=== PATIENT | male | born 1950 | race Caucasian/White ===

== ENCOUNTER → 2017-10-23 | Outpatient (CLI) | payer MEDICAID ==
[~2017-10-23] MED LIST: ALBU18HF INH; ASPI-621 PO; CEFD300C37 PO; FINA5TAB4 PO; HYDR-3307 PO; IPRA4AER INH; LANS15TA6 PO; LISI5TAB7 PO; METO25TA35 PO; METR500T PO; OXYB5TAB7 PO; OXYC5CAP2 PO; RIVA20TA PO; TAMS0.4C2 PO; TRAM50TA2 PO; ZOLM2.5T7 PO
[2017-10-23 15:20] LABS: ALANINE AMINOTRANSFERASE 49 U/L (12-78); ALBUMIN 3.9 g/dL (3.4-5.0); ANION GAP 9 mmol/L (5-15); CALCIUM 9.2 mg/dL (8.5-10.1); CHLORIDE 108 mmol/L (98-107)
[2017-10-23 15:22] LABS: ALKALINE PHOSPHATASE 72 U/L (45-117); BILIRUBIN,TOTAL 0.8 mg/dL (0.2-1.0); CREATININE 0.91 mg/dL (0.7-1.3); TOTAL PROTEIN 8.4 g/dL (6.4-8.2)
[2017-10-23 15:32] LABS: BASOPHILS # (AUTO) 0.03 x10^3/uL (0-0.1); BASOPHILS % (AUTO) 0 % (0-1); EOSINOPHILS # (AUTO) 0.14 x10^3/uL (0-0.4); EOSINOPHILS % (AUTO) 2 % (1-7); LYMPHOCYTES # (AUTO) 1.91 x10^3/uL (1-3.4); LYMPHOCYTES % (AUTO) 21 % (22-44); MD NO; MEAN CORPUSCULAR HEMOGLOBIN 31.3 pg (27.5-34.5); MEAN CORPUSCULAR HGB CONC 33.7 g/dL (33.2-36.2); MEAN CORPUSCULAR VOLUME 92.9 fL (81-97); MEAN PLATELET VOLUME 8.4 fL (7.4-10.4); MONOCYTES # (AUTO) 0.78 x10^3/uL (0.2-0.8); MONOCYTES % (AUTO) 9 % (2-9); NEUTROPHILS # (AUTO) 6.08 x10^3/uL (1.8-6.8); NEUTROPHILS % (AUTO) 68 % (42-75); PLATELET COUNT 311 x10^3/uL (130-400); RED BLOOD COUNT 4.81 x10^6/uL (4.38-5.82); RED CELL DISTRIBUTION WIDTH 14.5 % (9.4-14.8)
== END | disposition home or self-care (01) ==
LOC: STAR 13:41
PROVIDERS: ATTEND Internal Medicine Cardiovascular Disease
DX: Z01.812 Encounter for preprocedural laboratory examination (principal); I48.92 Unspecified atrial flutter
CPT/HCPCS: 36415; 80053; 85025

== ENCOUNTER → 2017-10-23 | Outpatient (CLI) | payer MEDICAID ==
[~2017-10-23] MED LIST changes: +OMNIPAQUE 350 MG/ML, 150 ML BOTTLE ONE
== END | disposition home or self-care (01) ==
LOC: CFH 12:12
PROVIDERS: ATTEND Internal Medicine Cardiovascular Disease
DX: J18.9 Pneumonia, unspecified organism (principal); J90 Pleural effusion, not elsewhere classified; I48.92 Unspecified atrial flutter
CPT/HCPCS: 71046; 75572; Q9967

== ENCOUNTER 2017-10-27 06:17 | Observation (INO) | payer MEDICAID ==
[2017-10-23 14:19] VITALS: BP 145/103
[~2017-10-27] VITALS: Ht 188 cm; Wt 89.8 kg
[~2017-10-27 06:17] MED LIST changes: -OMNIPAQUE 350 MG/ML, 150 ML BOTTLE ONE
[2017-10-27] MEDS ORDERED: SODIUM CHLORIDE 0.9% 1,000 ML IV SCH ×2 (06:39→07:00)
[2017-10-27] MEDS ORDERED: FENTANYL PF 250 MCG/5ML ONE (07:28)
[2017-10-27] MEDS ORDERED: MIDAZOLAM 1 MG/ML, 2ML ONE (07:28)
[2017-10-27] MEDS ORDERED: HEPARIN 1,000 UNITS/ML, 10ML ONE (07:29)
[2017-10-27] MEDS ORDERED: LIDOCAINE-MPF 2% ,5ML ONE ×3 (07:41→07:55)
[2017-10-27] MEDS ORDERED: ISOPROTERENOL 0.2MG/ML, 5ML ONE (07:41)
[2017-10-27] MEDS ORDERED: LIDOCAINE 2% 100MG/5ML SYRINGE ONE (07:54)
[2017-10-27] MEDS ORDERED: PROPOFOL 10 MG/ML, 20ML ONE (08:00)
[2017-10-27] MEDS ORDERED: SUCCINYLCHOLINE 20 MG/ML, 10ML ONE (08:00)
[2017-10-27] MEDS ORDERED: ROCURONIUM 10 MG/ML,10ML ONE (08:00)
[2017-10-27] MEDS ORDERED: DEXAMETHASONE 4 MG/ML, 1ML ONE (08:00)
[2017-10-27] MEDS ORDERED: ONDANSETRON 2MG/ML, 2ML ONE (08:00)
[2017-10-27] MEDS ORDERED: ALBUTEROL SULFATE INH PRN (09:30)
[2017-10-27] MEDS ORDERED: ACETAMINOPHEN 325 MG TABLET PO PRN ×2 (09:30→10:00)
[2017-10-27] MEDS ORDERED: ZOLMITRIPTAN 2.5 MG TABLET PO SCH (09:30)
[2017-10-27] MEDS ORDERED: ZOLPIDEM 5MG TABLET PO PRN (09:30)
[2017-10-27] MEDS ORDERED: RIVAROXABAN 20 MG TABLET ONE (09:36)
[2017-10-27] MEDS ORDERED: OXYcodone 5 MG/5 ML ORAL.SOL UDC PO PRN (10:00)
[2017-10-27] MEDS ORDERED: MIDAZOLAM 1 MG/ML, 2ML IV PRN (10:00)
[2017-10-27] MEDS ORDERED: PROMETHAZINE 12.5 MG SUPP PR PRN (10:00)
[2017-10-27] MEDS ORDERED: LORazepam 2 MG/ML, 1ML IVPush PRN (10:00)
[2017-10-27] MEDS ORDERED: PROMETHAZINE 25 MG/ML, 1ML IV PRN (10:00)
[2017-10-27] MEDS ORDERED: morphine SULFATE 10 MG/ML, 1ML IV PRN (10:00)
[2017-10-27] MEDS ORDERED: hydrALAzine 20 MG/ML, 1ML IV PRN (10:00)
[2017-10-27] MEDS ORDERED: ALBUTEROL/IPRATROPIUM 2.5MG/0.5MG, 3 ML NPPB PRN (10:00)
[2017-10-27] MEDS ORDERED: METOPROLOL 1 MG/ML, 5ML IV PRN (10:00)
[2017-10-27] MEDS ORDERED: ONDANSETRON 2MG/ML, 2ML IVPush PRN (10:00)
[2017-10-27] MEDS ORDERED: FENTANYL PF 100 MCG/2ML IV PRN (10:00)
[2017-10-27] MEDS ORDERED: EPHEDRINE 50 MG/ML, 1ML IVPush PRN (10:00)
[2017-10-27 11:43] VITALS: BP 131/83
[2017-10-27] MEDS ORDERED: ALBUTEROL SULFATE 2.5MG/0.5ML NPPB PRN (12:00)
[2017-10-27 16:11] VITALS: BP 122/77
[2017-10-27 19:53] VITALS: BP 124/76
[2017-10-27] MEDS ORDERED: LISINOPRIL 5 MG TABLET PO SCH (21:00)
[2017-10-27] MEDS ORDERED: TAMSULOSIN 0.4 MG CAP.ER.24H PO SCH (22:00)
[2017-10-27] MEDS ORDERED: OXYBUTYNIN CHLORIDE 5 MG TABLET PO SCH (22:00)
[2017-10-27] MEDS ORDERED: FINASTERIDE 5 MG TABLET PO SCH ×2 (22:00→23:30)
[2017-10-27] MEDS ORDERED: PANTOPRAZOLE 20MG TABLET ONE (23:10)
[2017-10-28 02:17] VITALS: BP 129/74
[2017-10-28 08:10] VITALS: BP 127/77
[2017-10-28] MEDS ORDERED: TAMSULOSIN 0.4 MG CAP.ER.24H PO SCH ×2 (09:00→21:00)
[2017-10-28] MEDS ORDERED: OXYBUTYNIN CHLORIDE 5 MG TABLET PO SCH ×2 (09:00→21:00)
[2017-10-28] MEDS ORDERED: FINASTERIDE 5 MG TABLET PO SCH ×2 (09:00→21:00)
[2017-10-28] MEDS ORDERED: PANTOPRAZOLE 20MG TABLET PO SCH (09:00)
[2017-10-28] MEDS ORDERED: RIVAROXABAN 20 MG TABLET PO SCH (09:00)
== END 2017-10-28 13:04 | disposition home or self-care (01) ==
LOC: CACL 06:17 → ORIP 09:16 → 5SO 11:32
PROVIDERS: ADMIT Internal Medicine Cardiovascular Disease; ATTEND Internal Medicine Cardiovascular Disease
DX: I48.92 Unspecified atrial flutter (principal); R00.2 Palpitations; I34.0 Nonrheumatic mitral (valve) insufficiency; Z95.0 Presence of cardiac pacemaker
CPT/HCPCS: 93312; 93321; 93325; 93613; 93621; 93653; C1730; C1731; C1732; C1894; G0378; J0330; J1100; J2250; J2405; J2704; J3010; J3490; J1644